=== PATIENT | female | born 1980 | race Caucasian/White ===

== ENCOUNTER 2018-01-12 19:39 | Emergency (ER) | payer BC, SELFPAY ==
[2018-01-12 19:45] VITALS: BP 148/98; PULSE 100; RESP 18; TEMP 37; O2SAT 99; BMI 38.0
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
[2018-01-12] MEDS: HYDROCODONE/ACET 5/325 TABLET 1 TAB PO (20:13)
[2018-01-12] MEDS: HYDROCODONE/ACET 5/325 PREPACK 1 BOTTLE MISC (21:09)
[2018-01-12 21:11] VITALS: BP 141/89; PULSE 94; RESP 18; O2SAT 99
== END 2018-01-12 21:13 | disposition home or self-care (01) ==
PROVIDERS: Emergency Provider Nurse Practitioner Family
DX: T23.002A Burn of unspecified degree of left hand, unspecified site, initial encounter (principal); X15.8XXA Contact with other hot household appliances, initial encounter
CPT/HCPCS: 99282; 99283